=== PATIENT | male | born 1990 | race Hispanic/Latino ===

== ENCOUNTER 2023-08-05 15:20 | Emergency (ER) | payer OTHER | END 2023-08-05 17:20 | disposition left against medical advice (07) | LOC: EDH 15:20 | DX: R68.89 Other general symptoms and signs (principal); Z53.21 Procedure and treatment not carried out due to patient leaving prior to being seen by health care provider ==

== ENCOUNTER 2024-04-12 01:03 | Emergency (ER) | payer SELFPAY ==
[~2024-04-12] VITALS: Ht 182.9 cm; Wt 127.0 kg
[2024-04-12 01:31] LABS: BASOPHILS # (AUTO) 0.07 K/uL (0.00-0.20); BASOPHILS % (AUTO) 0.7 % (0.0-5.0); EOSINOPHILS # (AUTO) 0.02 K/uL (0.00-0.70); EOSINOPHILS % (AUTO) 0.2 % (0.0-8.0); HEMATOCRIT 48.6 % (42-54); IMMATURE GRANULOCYTE ABSOLUTE 0.02 K/uL (0-1); LYMPHOCYTES # (AUTO) 2.5 K/uL (1.0-4.8); LYMPHOCYTES % (AUTO) 24.6 % (21.0-51.0); MEAN CORPUSCULAR HEMOGLOBIN 27.8 pg (27.0-33.0); MEAN CORPUSCULAR HGB CONC 33.1 g/dL (32.0-36.0); MEAN CORPUSCULAR VOLUME 83.8 fL (79-99); MONOCYTES # (AUTO) 0.5 K/uL (0.1-1.0); MONOCYTES % (AUTO) 5.4 % (3.0-13.0); NEUTROPHILS # (AUTO) 6.9 K/uL (1.8-7.7); NEUTROPHILS % (AUTO) 68.9 % (40.0-77.0); PLATELET COUNT (AUTO) 336 K/uL (130-400); RED CELL DISTRIBUTION WIDTH 13.3 % (11.0-15.5)
[2024-04-12 01:39] LABS: CARBON DIOXIDE 23 mmol/L (21-32); CHLORIDE 102 mmol/L (101-111); CREATININE 1.4 mg/dL (0.5-1.3); GLOMERULAR FILTR. RATE CALC 69 mL/min (>90); GLUCOSE,RANDOM 129 mg/dL (70-105); POTASSIUM 3.9 mmol/L (3.5-5.1); SODIUM SERUM 137 mmol/L (136-145); UREA NITROGEN, BLOOD 13 mg/dL (7-18)
[2024-04-12 01:43] LABS: ALCOHOL, BLOOD < 3 mg/dL (0-10)
[2024-04-12 01:50] LABS: ACETAMINOPHEN < 1 mcg/mL (10-29); SALICYLATE < 2.8 mg/dL (2.8-20.0)
--- NOTE | 2024-04-12 05:37 | ERN ---
General Chief Complaint: Overdose Stated Complaint: OVERDOSE Time Seen by MD: 01:06 History of Present Illness Initial Comments Mr. Barakat is a very pleasant but unfortunate 33-year-old male who comes in today with suspected overdose. Patient apparently took an unreported amount of Seroquel and tramadol. Brought in for further evaluation and care. Mom who gives most of the history reports patient has been depressed Allergies: Coded Allergies: No Known Drug Allergies (Unverified Allergy, Unknown, 04/12/24) Past Medical History Past Medical History: No Pertinent History Past Surgical History: None ROS Dictation Constitutional: Negative for fever,chills, and weight loss Eyes: Negative for injury, pain,redness, and discharge ENT: Negative for injury,pain or swelling Cardiovascular: Negative for chest pain, palpitations, and edema Respiratory: Negative for shortness of breath, cough, and wheezing, Abdomen/GI: Negative for abdominal Back: Negative for injury and pain : Negative for injury, bleeding and discharge MS/Extremity: Negative for injury and deformity Skin: Negative for rash, and discoloration Neuro: Negative for headache, weakness, numbness, tingling, and seizure Psych: Positive for suicidal ideation Physical Exam Physical Exam Dictation General: Lethargic male Head/Face: Normocephalic, atraumatic Eyes: PERRL, EOMI, vision at baseline ENT: oral cavity clear Neck: Trachea midline, supple Cardiovascular: RRR, normal S1/S2, No MRGs, no JVD Respiratory: CTAB, no respiratory distress, No rales or wheezes Abdomen: Soft, non-tender, non-distended, normal bowel sounds, no guarding or rebound. Skin: Warm, dry, normal turgor, no rash MS/Extremity: Pulses equal, no cyanosis, neurovascular intact, FROM Neuro: COAx4, GCS 15, strength 5/5, CN 2-12 intact, normal cerebellar exam, normal gait, Psych: Depressive mood Results Laboratory and Microbiology Lab and Micro Result Laboratory Tests Test 04/12/24 01:25 04/12/24 06:07 04/12/24 08:12 White Blood Count 10.0 K/uL (4.8-10.8) Red Blood Count 5.80 MIL/uL (4.50-6.20) Hemoglobin 16.1 g/dL (14.0-18.0) Hematocrit 48.6 % (42-54) Mean Corpuscular Volume 83.8 fL (79-99) Mean Corpuscular Hemoglobin 27.8 pg (27.0-33.0) Mean Corpuscular Hemoglobin Concent 33.1 g/dL (32.0-36.0) Red Cell Distribution Width 13.3 % (11.0-15.5) Platelet Count 336 K/uL (130-400) Mean Platelet Volume 9.7 fL (7.5-10.5) Immature Granulocyte % (Auto) 0.2 % (0-1) Neutrophils (%) (Auto) 68.9 % (40.0-77.0) Lymphocytes (%) (Auto) 24.6 % (21.0-51.0) Monocytes (%) (Auto) 5.4 % (3.0-13.0) Eosinophils (%) (Auto) 0.2 % (0.0-8.0) Basophils (%) (Auto) 0.7 % (0.0-5.0) Neutrophils # (Auto) 6.9 K/uL (1.8-7.7) Lymphocytes # (Auto) 2.5 K/uL (1.0-4.8) Monocytes # (Auto) 0.5 K/uL (0.1-1.0) Eosinophils # (Auto) 0.02 K/uL (0.00-0.70) Basophils # (Auto) 0.07 K/uL (0.00-0.20) Absolute Immature Granulocyte (auto 0.02 K/uL (0-1) Nucleated Red Blood Cells 0.0 % (0.0-0.19) Sodium Level 137 mmol/L (136-145) Potassium Level 3.9 mmol/L (3.5-5.1) Chloride Level 102 mmol/L (101-111) Carbon Dioxide Level 23 mmol/L (21-32) Blood Urea Nitrogen 13 mg/dL (7-18) Creatinine 1.4 mg/dL (0.5-1.3) H Glomerular Filtration Rate Calc 69 mL/min (>90) Random Glucose 129 mg/dL (70-105) H Total Calcium 10.0 mg/dL (8.5-10.1) Salicylates Level < 2.8 mg/dL (2.8-20.0) L < 2.8 mg/dL (2.8-20.0) L Acetaminophen Level < 1 mcg/mL (10-29) L < 1 mcg/mL (10-29) L Serum Alcohol < 3 mg/dL (0-10) Urine Color YELLOW (YELLOW) Urine Appearance CLEAR (CLEAR) Urine pH 5.5 (5.0-8.0) Urine Specific [place] 1.026 (1.001-1.031) Urine Protein 30 mg/dL (NEGATIVE) H Urine Glucose (UA) NEGATIVE mg/dL (NEGATIVE) Urine Ketones NEGATIVE mg/dL (NEGATIVE) Urine Occult Blood NEGATIVE (NEGATIVE) Urine Nitrate NEGATIVE (NEGATIVE) Urine Bilirubin NEGATIVE mg/dL (NEGATIVE) Urine Urobilinogen 0.2 mg/dL (0.2-1.0) Urine Leukocyte Esterase NEGATIVE L[place]/uL Urine RBC 2-5 /HPF (0-1) H Urine WBC 0-1 /HPF (0-1) Urine Squamous Epithelial Cells RARE /HPF (0-2) Urine Bacteria None /HPF (None Seen) Urine Opiates Screen NEGATIVE (NEGATIVE) Urine Barbiturates Screen NEGATIVE (NEGATIVE) Urine Phencyclidine Screen NEGATIVE (NEGATIVE) Urine Amphetamines Screen NEGATIVE (NEGATIVE) Urine Benzodiazepines Screen NEGATIVE (NEGATIVE) Urine Cocaine Screen NEGATIVE (NEGATIVE) Urine Marijuana (THC) Screen NEGATIVE (NEGATIVE) Labs Reviewed?: Yes MDM MDM: DIFFERENTIAL DIAGNOSIS: PSYCHIATRIC ILLNESS, SUICIDAL IDEATION RATIONALE: TESTS CONSIDERED AND ORDERED SECONDARY TO SHARED DECISION MAKING INCLUDE: PREVIOUS OUTSIDE RECORDS REVIEWED: OLD ER VISITS. RISK OF COMPLICATION AND/OR MORBIDITY OR MORTALITY OF PATIENT MANAGEMENT: NONE MEDICATIONS-PER MEDICATION RECONCILIATION NEED FOR HOSPITALIZATION: PATIENT DOES MEET CRITERIA FOR HOSPITALIZATION. NEED FOR EMERGENCY MAJOR/MINOR SURGERY: NO THERE ARE NO SOCIAL CONCERNS WITH THIS PATIENT. PRESCRIPTION DRUG MANAGEMENT PRESCRIPTIONS WILL INCLUDE SYMPTOMATIC CARE PATIENT'S PRIOR EXTERNAL MEDICAL RECORDS FROM OTHER ER VISITS WERE REVIEWED BY ME INDICATED. PRIOR TESTING AND RESULTS FROM PREVIOUS VISITS WERE REVIEWED. PRIOR TESTS WERE TAKEN INTO ACCOUNT WITH MEDICAL DECISION MAKING AND RESOURCE UTILIZATION, INDEPENDENT HISTORIAN/HISTORIANS WERE USED TO OBTAIN COMPLETE MEDICAL HISTORY. I INDEPENDENTLY INTERPRETED THE TEST THAT WERE PERFORMED, RESULTS WERE REVIEWED BY ME AND CONSIDERED FINDINGS ON RADIOLOGY IF ORDERED. MEDICAL MANAGEMENT AND EXAMINATION INTERPRETATION DISCUSSIONS WERE HAD BY ME WITH OTHER QUALIFIED HEALTHCARE PROFESSIONALS INDICATED FOR THE PATIENT'S CARE. PATIENT IS A OPTED TO REVIEWED UNDER [facility] FOR ONGOING MANAGEMENT OF PSYCHIATRIC ILLNESS. ED Course Orders Procedure Category Date Status Time Call Poison Control CPOE 04/12/24 Transmitted 01:06 Cbc With Differential LAB 04/12/24 Complete 01:06 Alcohol, Blood LAB 04/12/24 Complete 01:06 Salicylate LAB 04/12/24 Complete 01:06 Acetaminophen LAB 04/12/24 Complete 01:06 Urinalysis Profile LAB 04/12/24 Complete 01:06 12 Lead Ekg Tracing- EKG 04/12/24 Complete Technical 01:06 Basic Metabolic Panel LAB 04/12/24 Complete 01:06 Drug Screen Urine LAB 04/12/24 Complete 01:06 Acetaminophen LAB 04/12/24 Complete 05:34 Salicylate LAB 04/12/24 Complete 05:34 Vital Signs Date Time Temp Pulse Resp B/P (MAP) Pulse Ox O2 Delivery O2 Flow Rate FiO2 04/12/24 11:00 97.5 105 14 156/100 98 Room Air* 0 21 04/12/24 07:35 97.5 92 14 137/77 94 Room Air* 0 21 04/12/24 02:42 85 14 114/60 96 Nasal Cannula* 4 36 04/12/24 01:40 97.5 102 14 131/85 92 Nasal Cannula* 2 28 04/12/24 01:05 98.1 89 24 89/40 100 Nasal Cannula DX & DISP Disposition: Discharge Departure Impression: Primary Impression: Psychiatric illness Additional Impression: Suicidal ideation Condition: Stable Referrals: SELF,REFERRAL (PCP) Time of Disposition: 14:11 LAURE WILSON MD Apr 12, 2024 05:37 RUBÉN CHEEMA MD Apr 12, 2024 14:12
[2024-04-12 06:46] LABS: ACETAMINOPHEN < 1 mcg/mL (10-29); SALICYLATE < 2.8 mg/dL (2.8-20.0)
--- NOTE | 2024-04-12 06:50 | EKG ---
[facility] Test Date: 2024-04-12 Test Time: 01:57:36 Pat Name: TIFFANY COLE Department: [facility] Room: Gender: M Card Runner: [id number] : 1990 Requested By: LAURE WILSON Order Number: [id number] Reading MD: Dex Mancia Measurements Intervals Amoret Rate: 98 P: -2 CT: 157 QRS: -41 QRSD: 98 T: 19 QT: 354 QTc: 453 Interpretive Statements Sinus rhythm Left anterior fascicular block No previous ECG available for comparison Electronically Signed On 04-14-2024 18:31:25 KILN LOADER by Dex Mancia Please click the below link to view image of tracing.
[2024-04-12 08:30] LABS: APPEARANCE,URINE CLEAR (CLEAR); BILIRUBIN,URINE NEGATIVE (NEGATIVE); COLOR,URINE YELLOW (YELLOW); GLUCOSE, URINE (UA) NEGATIVE (NEGATIVE); KETONES,URINE NEGATIVE (NEGATIVE); LEUKOCYTE ESTERASE ,URINE NEGATIVE Leu/uL (NEGATIVE); NITRATE,URINE NEGATIVE (NEGATIVE); OCCULT BLOOD,URINE NEGATIVE (NEGATIVE); PH,URINE 5.5 (5.0-8.0); PROTEIN,URINE 30 mg/dL (NEGATIVE); UROBILINOGEN,URINE 0.2 mg/dL (0.2-1.0)
[2024-04-12 08:32] LABS: ADD UA MICROSCOPIC YES
[2024-04-12 08:41] LABS: MUCUS,URINE RARE LPF (None Seen); SQUAMOUS EPITHELIAL CELL,UR RARE /HPF (0-2); WBC,URINE 0-1 /HPF (0-1)
[2024-04-12 08:42] LABS: AMPHET/METH SCREEN,URINE NEGATIVE (NEGATIVE); BARBITURATE SCREEN, URINE NEGATIVE (NEGATIVE); BENZODIAZEPINES SCREEN,URINE NEGATIVE (NEGATIVE); CANNABINOID SCREEN,URINE NEGATIVE (NEGATIVE); COCAINE SCREEN,URINE NEGATIVE (NEGATIVE); OPIATE SCREEN,URINE NEGATIVE (NEGATIVE); PHENCYCLIDINE SCREEN,URINE NEGATIVE (NEGATIVE)
[2024-04-12 16:15] VITALS: BP 139/71; PULSE 108; RESP 14; TEMP 97.5; O2SAT 95
== END 2024-04-12 16:16 ==
LOC: EDH 01:03
DX: R45.851 Suicidal ideations (principal)
CPT/HCPCS: 99285; 80048; 80305; 85025; 36415; 93005; 81001; G0481 ×2